=== PATIENT | male | born 1975 | race American Indian/Alaskan Native ===

== ENCOUNTER 2019-01-28 14:37 | Emergency (ER) | payer SELFPAY ==
--- NOTE | 2019-01-28 15:09 | Event Note ---
ED Screening Note Date of service: 01/28/19 Time: 15:05 ED Screening Note: 43 y o male presents for alcohol detox cc of feeling like bugs are crwaling all inside of his skin last drink 2 hours ago, feels like he needs a drink now This initial assessment/diagnostic orders/clinical plan/treatment(s) is/are subject to change based on patients health status, clinical progression and re- assessment by fellow clinical providers in the ED. Further treatment and workup at subsequent clinical providers discretion. Patient/guardian urged not to elope from the ED as their condition may be serious if not clinically assessed and managed. Initial orders include: labs
[2019-01-28 15:53] LABS: Basophils % (Auto) 0.9 % (0.0-1.8); Eosinophils # (Auto) 0.3 K/mm3 (0.0-0.4); Eosinophils % (Auto) 5.2 % (0.0-4.3); Hemoglobin 15.3 gm/dl (11.8-15.2); Lymphocytes # (Auto) 2.4 K/mm3 (1.2-5.4); Lymphocytes % (Auto) 45.4 % (13.4-35.0); Mean Corpuscular HGB Conc 35 % (32-34); Mean Corpuscular Volume 101 fl (84-94); Monocytes # (Auto) 0.2 K/mm3 (0.0-0.8); Monocytes % (Auto) 3.3 % (0.0-7.3); Platelet Count 256 K/mm3 (140-440); Red Blood Count 4.37 M/mm3 (3.65-5.03); Red Cell Distribution Width 12.6 % (13.2-15.2)
[2019-01-28 16:05] LABS: BUN/Creatinine Ratio 11; Blood Urea Nitrogen 10 mg/dL (9-20); Hemolysis Index 8
[2019-01-28 16:14] LABS: Bilirubin,Urine NEG (Negative); Blood,Urine SM (Negative); Color,Urine Yellow (Yellow); Mucus,Urine FEW /HPF; Protein,Urine <15 mg/dL mg/dL (Negative)
[2019-01-28 16:21] LABS: Amphetamine Screen,Urine PRESUMPTIVE NEGATIVE; Benzodiazepines Screen,Urine PRESUMPTIVE NEGATIVE; Cannabinoid Screen,Urine PRESUMPTIVE NEGATIVE; Cocaine Screen,Urine PRESUMPTIVE NEGATIVE; Methadone Screen,Urine PRESUMPTIVE NEGATIVE; Opiate Screen,Urine PRESUMPTIVE NEGATIVE
[2019-01-28] MEDS ORDERED: VITAMIN B-1 100 MG, FOLVITE 1 MG, INFUVITE 10 ML in NACL 0.9% 1000 ML 1,000 ML IV ONE (18:26)
--- NOTE | 2019-01-28 19:21 | Emergency Department Report ---
ED Alcohol HPI - General Chief Complaint: Medical Clearance Stated Complaint: DETOX Time Seen by Provider: 01/28/19 15:04 Source: patient Mode of arrival: Ambulatory Limitations: No Limitations - History of Present Illness Initial Comments: 43-year-old male with no significant past medical history presents to the hospital requests alcohol detox. Patient states he drinks wine, beer, and/or liquor daily. Patient never sought out treatment in the past. Last drink was prior to arrival. He denies any nausea, vomiting, or pain currently. His family members are at the bedside. Positive history of tremors with alcohol withdrawal. Denies previous history of seizures. No complaints of hallucinations. - Related Data Allergies Allergy/AdvReac Type Severity Reaction Status Date / Time No Known Allergies Allergy Unverified 01/28/19 15:10 ED Review of Systems ROS: Stated complaint: DETOX Other details as noted in HPI Comment: All other systems reviewed and negative ED Past Medical Hx - Past Medical History Previous Medical History?: No - Surgical History Past Surgical History?: No - Social History Smoking Status: Heavy Tobacco Smoker Substance Use Type: Alcohol ED Physical Exam - General Limitations: No Limitations - Other Other exam information: Normal: No acute distress Head: Atraumatic Eyes: Normal appearance, pupils equally reactive to light, extraocular movements intact ENT: Moist mucous membranes Neck: Normal appearance, no midline cervical tenderness, no meningismus Chest: Clear to auscultation bilaterally, no wheezes, rales, crackles Cardiovascular: Regular rate and rhythm Abdomen: Soft, nontender, nondistended, no rebound or guarding, normal bowel sounds Back: Normal. Extremity: Normal appearance, full range of motion Neuro: Alert and oriented 3, speech normal, no gross motor sensory deficit, no tremor Psych: Appropriate Skin: No rash ED Course Vital Signs 01/28/19 01/28/19 01/28/19 14:47 16:38 16:45 Temperature 98.5 F Pulse Rate 106 H 102 H Respiratory 18 19 Rate Blood Pressure 127/86 132/95 O2 Sat by Pulse 95 97 97 Oximetry 01/28/19 01/28/19 01/28/19 17:00 17:30 18:00 Temperature Pulse Rate 97 H 96 H 98 H Respiratory 17 21 14 Rate Blood Pressure 135/87 146/95 139/96 O2 Sat by Pulse 93 96 Oximetry 01/28/19 01/28/19 01/28/19 18:30 19:01 19:30 Temperature Pulse Rate 94 H 93 H 94 H Respiratory 18 18 14 Rate Blood Pressure 137/86 134/93 129/82 O2 Sat by Pulse 97 98 98 Oximetry 01/28/19 01/28/19 01/28/19 20:00 20:30 20:50 Temperature Pulse Rate 93 H 93 H Respiratory 13 19 16 Rate Blood Pressure 136/90 128/88 O2 Sat by Pulse 98 96 99 Oximetry 01/28/19 01/28/19 01/28/19 21:00 21:30 22:00 Temperature Pulse Rate 97 H 86 88 Respiratory 16 15 13 Rate Blood Pressure 133/103 132/95 130/92 O2 Sat by Pulse 96 98 98 Oximetry 01/28/19 01/28/19 01/28/19 22:30 22:31 23:00 Temperature Pulse Rate 86 86 82 Respiratory 17 16 16 Rate Blood Pressure 132/98 132/98 137/93 O2 Sat by Pulse 97 97 97 Oximetry 01/28/19 01/29/19 01/29/19 23:30 00:00 00:30 Temperature Pulse Rate 84 80 82 Respiratory 16 24 18 Rate Blood Pressure 124/94 142/91 133/94 O2 Sat by Pulse 98 97 97 Oximetry 01/29/19 01/29/19 01/29/19 01:00 01:30 02:00 Temperature Pulse Rate 76 80 81 Respiratory 19 19 18 Rate Blood Pressure 144/98 155/98 134/92 O2 Sat by Pulse 97 97 97 Oximetry 01/29/19 01/29/19 01/29/19 02:30 03:00 03:30 Temperature Pulse Rate 81 84 83 Respiratory 20 18 21 Rate Blood Pressure 131/91 125/87 122/84 O2 Sat by Pulse 97 97 96 Oximetry 01/29/19 01/29/19 01/29/19 04:00 04:30 05:00 Temperature Pulse Rate 75 77 71 Respiratory 23 19 20 Rate Blood Pressure 132/85 127/94 121/88 O2 Sat by Pulse 94 96 96 Oximetry 01/29/19 01/29/19 01/29/19 05:30 06:00 06:30 Temperature Pulse Rate 71 70 70 Respiratory 20 16 18 Rate Blood Pressure 132/90 136/98 128/84 O2 Sat by Pulse 95 97 95 Oximetry 01/29/19 01/29/19 01/29/19 07:00 07:08 07:30 Temperature 98.6 F Pulse Rate 72 70 Respiratory 15 21 Rate Blood Pressure 135/80 133/94 O2 Sat by Pulse 94 96 Oximetry 01/29/19 01/29/19 01/29/19 08:01 08:30 09:00 Temperature Pulse Rate 66 68 68 Respiratory 19 19 18 Rate Blood Pressure 130/89 138/88 120/68 O2 Sat by Pulse 95 94 98 Oximetry 01/29/19 01/29/19 01/29/19 09:30 10:00 10:30 Temperature Pulse Rate 74 64 73 Respiratory 19 18 16 Rate Blood Pressure 136/96 133/89 141/97 O2 Sat by Pulse 96 94 97 Oximetry ED Medical Decision Making - Lab Data Result diagrams: 01/28/19 15:16 01/28/19 15:16 Lab Results 01/28/19 01/28/19 01/28/19 Range/Units 15:16 15:16 15:16 WBC 5.2 (4.5-11.0) K/mm3 RBC 4.37 (3.65-5.03) M/mm3 Hgb 15.3 H (11.8-15.2) gm/dl Hct 44.0 (35.5-45.6) % MCV 101 H (84-94) fl MCH 35 H (28-32) pg MCHC 35 H (32-34) % RDW 12.6 L (13.2-15.2) % Plt Count 256 (140-440) K/mm3 Lymph % (Auto) 45.4 H (13.4-35.0) % [place] % (Auto) 3.3 (0.0-7.3) % Eos % (Auto) 5.2 H (0.0-4.3) % Baso % (Auto) 0.9 (0.0-1.8) % Lymph # 2.4 (1.2-5.4) K/mm3 Dougherty # 0.2 (0.0-0.8) K/mm3 Eos # 0.3 (0.0-0.4) K/mm3 Baso # 0.0 (0.0-0.1) K/mm3 Seg Neutrophils % 45.2 (40.0-70.0) % Seg Neutrophils # 2.3 (1.8-7.7) K/mm3 Sodium 141 (137-145) mmol/L Potassium 3.8 (3.6-5.0) mmol/L Chloride 101.2 (98-107) mmol/L Carbon Dioxide 22 (22-30) mmol/L Anion Gap 22 mmol/L BUN 10 (9-20) mg/dL Creatinine 0.9 (0.8-1.5) mg/dL Estimated GFR > 60 ml/min BUN/Creatinine Ratio 11 % Glucose 120 H (75-100) mg/dL Calcium 9.0 (8.4-10.2) mg/dL Magnesium (1.7-2.3) mg/dL Urine Color (Yellow) Urine Turbidity (Clear) Urine pH (5.0-7.0) Ur Specific [place] (1.003-1.030) Urine Protein (Negative) mg/dL Urine Glucose (UA) (Negative) mg/dL Urine Ketones (Negative) mg/dL Urine Blood (Negative) Urine Nitrite (Negative) Urine Bilirubin (Negative) Urine Urobilinogen (<2.0) mg/dL Ur Leukocyte Esterase (Negative) Urine WBC (Auto) (0.0-6.0) /HPF Urine RBC (Auto) (0.0-6.0) /HPF U Epithel Cells (Auto) (0-13.0) /HPF Urine Mucus /HPF Urine Opiates Screen Urine Methadone Screen Ur Barbiturates Screen Ur Phencyclidine Scrn Ur Amphetamines Screen U Benzodiazepines Scrn Urine Cocaine Screen U Marijuana (THC) Screen Drugs of Abuse Note Plasma/Serum Alcohol 0.29 H (0-0.07) % 01/28/19 01/28/19 01/28/19 Range/Units 15:33 Unknown Unknown WBC (4.5-11.0) K/mm3 RBC (3.65-5.03) M/mm3 Hgb (11.8-15.2) gm/dl Hct (35.5-45.6) % MCV (84-94) fl MCH (28-32) pg MCHC (32-34) % RDW (13.2-15.2) % Plt Count (140-440) K/mm3 Lymph % (Auto) (13.4-35.0) % [place] % (Auto) (0.0-7.3) % Eos % (Auto) (0.0-4.3) % Baso % (Auto) (0.0-1.8) % Lymph # (1.2-5.4) K/mm3 [place] # (0.0-0.8) K/mm3 Eos # (0.0-0.4) K/mm3 Baso # (0.0-0.1) K/mm3 Seg Neutrophils % (40.0-70.0) % Seg Neutrophils # (1.8-7.7) K/mm3 Sodium (137-145) mmol/L Potassium (3.6-5.0) mmol/L Chloride (98-107) mmol/L Carbon Dioxide (22-30) mmol/L Anion Gap mmol/L BUN (9-20) mg/dL Creatinine (0.8-1.5) mg/dL Estimated GFR ml/min BUN/Creatinine Ratio % Glucose (75-100) mg/dL Calcium (8.4-10.2) mg/dL Magnesium 2.20 (1.7-2.3) mg/dL Urine Color Yellow (Yellow) Urine Turbidity Clear (Clear) Urine pH 5.0 (5.0-7.0) Ur Specific [place] 1.017 (1.003-1.030) Urine Protein <15 mg/dl (Negative) mg/dL Urine Glucose (UA) Neg (Negative) mg/dL Urine Ketones Neg (Negative) mg/dL Urine Blood Sm (Negative) Urine Nitrite Neg (Negative) Urine Bilirubin Neg (Negative) Urine Urobilinogen 2.0 (<2.0) mg/dL Ur Leukocyte Esterase Neg (Negative) Urine WBC (Auto) 2.0 (0.0-6.0) /HPF Urine RBC (Auto) 3.0 (0.0-6.0) /HPF U Epithel Cells (Auto) 1.0 (0-13.0) /HPF Urine Mucus Few /HPF Urine Opiates Screen Presumptive negative Urine Methadone Screen Presumptive negative Ur Barbiturates Screen Presumptive negative Ur Phencyclidine Scrn Presumptive negative Ur Amphetamines Screen Presumptive negative U Benzodiazepines Scrn Presumptive negative Urine Cocaine Screen Presumptive negative U Marijuana (THC) Screen Presumptive negative Drugs of Abuse Note Disclamer Plasma/Serum Alcohol (0-0.07) % - Medical Decision Making Patient here requesting help with alcohol addiction. Patient presents with acute alcohol intoxication. Received banana bag in ED. Placed on CIWA protocol in anticipation of her jaws. Mental health has been consultation. - Differential Diagnosis alcohol intoxication, substance abuse, Critical Care Time: No Critical care attestation.: If time is entered above; I have spent that time in minutes in the direct care of this critically ill patient, excluding procedure time. ED Disposition Clinical Impression: Alcohol abuse Acute alcohol intoxication Qualifiers: Complication of substance-induced condition: uncomplicated Qualified Code(s): F 10.920 - Alcohol use, unspecified with intoxication, uncomplicated Disposition: DC-01 TO HOME OR SELFCARE Is pt being admited?: No Does the pt Need Aspirin: No Condition: Stable Referrals: PRIMARY CARE, [Primary Care Provider] - 3-5 Days
[2019-01-28] MEDS ORDERED: ATIVAN IV PRN ×2 (19:23)
--- NOTE | 2019-01-29 10:13 | Emergency Department Report ---
Blank Doc - Documentation Documentation: She was previously seen from: Intoxication and platelets oxywalk protocol. Howard nair has been medically cleared patient is requesting go will give him referral for outpatient detox.
[2019-01-29 11:17] VITALS: BP 141/97
== END 2019-01-29 11:17 | disposition home or self-care (01) ==
LOC: ED 14:37
DX: F10.120 Alcohol abuse with intoxication, uncomplicated (principal); F17.200 Nicotine dependence, unspecified, uncomplicated
CPT/HCPCS: 36415; 80048; 80307; 81001; 83735; 85025; 96365; 96375; 99284; J2060; J3411; J7030; 80320; G0480